=== PATIENT | male | born 1975 | race Caucasian/White ===

== ENCOUNTER 2024-02-13 21:32 | Emergency (ER) | payer SELFPAY ==
[2024-02-13 21:39] VITALS: BP 159/110
[2024-02-13 22:07] VITALS: BMI 41.5
[2024-02-13 22:30] VITALS: BP 140/88
[2024-02-13 23:08] VITALS: BP 138/82
[2024-02-14] VITALS: BP 130/68
--- NOTE | 2024-02-14 00:02 | ED.GENMED ---
History of Present Illness
General
Chief Complaint: Skin Problem
Source: patient
Exam Limitations: none
Time Seen by Provider: 02/13/24 23:09
Nursing documentation reviewed up to this point in time: agreed with
History of Present Illness
History of Present Illness:
Patient presents to ED secondary to worsening left foot pain with swelling over the past 2 days. Pain is minimal at rest, but worse with ambulation. Denies fever or chills. Denies direct trauma. Denies recent injury. Patient states that he went
to beach 1 day prior to his symptoms. Patient did not have any pain during the trip or afterwards. It is when he woke up the following day, he noticed aforementioned left foot pain. In addition, he has noted on top of his foot, puncture gonzalez,
and is concerned that he may have been bitten by 'insects'.
Review of Systems
Review of Systems
Allergies reviewed?: Yes
All Other Systems: ROS reviewed and negative except as documented in HPI and ROS
Constitutional: Reports no symptoms
EENT: Reports no symptoms
Musculoskeletal: Reports other (foot pain w swelling)
Skin: Reports no symptoms
Neurological: Reports no symptoms
Phy Exam
Physical Exam
Physical Exam:
Physical Exam
General: no apparent distress, not acutely ill. afebrile
Head: nc/at. eomi
Neck: supple. normal range of motion.
Neuro: alert and oriented. no focal neurological deficits
Skin: 2 punctured gonzalez noted over top of left foot with minimal erythema/swelling, along with mild tenderness to palpation.
Psychiatric: well kept. interactive and cooperative
Extremities: no calf tenderness.
Course
Vital Signs
Initial and Last Documented VS:
Initial Vital Signs
Temp Pulse Resp BP Pulse Ox
98.3 F 94 18 159/110 98
02/13/24 21:39 02/13/24 21:39 02/13/24 21:39 02/13/24 21:39 02/13/24 21:39
Last Documented Vital Signs
Temp Pulse Resp BP Pulse Ox
98.4 F 70 18 130/68 99
02/13/24 23:08 02/14/24 00:00 02/14/24 00:00 02/14/24 00:00 02/14/24 00:00
MDM/Problems Addressed
MDM/Problems Addressed:
History and exam consistent with likely local inflammatory response from insect bite. No evidence of superimposed infection at this time. Will advise ice application, elevation, benadryl, NSAIDs, along with PCP follow-up. Advised to return to ED
with worsening symptoms.
*Critical Care Note
Total Time (30-74mins, 75-104mins- exclusive of procedures): Not Applicable
ED Attending Note
-
Portions of this chart may have been created with voice recognition software.� Occasional wrong word or��sound alike� substitutions may have occurred due to the inherent limitations of voice recognition software.
Discharge Plan
Departure
Patient Disposition: Home (Routine Discharge)
Date of Disposition: 02/14/24
Time of Disposition: 00:02
Patient with high blood pressure during this ER visit?: Yes
Discharge Problem:
Insect bite
Instructions: Insect Bites and Stings ED
Prescriptions:
New
tramadol 50 mg tablet
50 mg PO TID PRN (Reason: Pain) Qty: 14 0RF
Referrals:
Ozzie Greenberg DO [Family Provider] -
Activity Restrictions/Additional Instructions:
As discussed, please follow-up with your primary care exam for reevaluation. Your prescription has been sent electronically to [facility] pharmacy in [place].
Interventions
Interventions:
*Risk Screen - Suicide Last Done: 02/13/24 21:39
*General Assessment Last Done: 02/13/24 21:39
*Neglect/Abuse Screening Last Done: 02/13/24 21:39
ED- Fall Risk Assessment Last Done: 02/13/24 22:11
*ED COVID-19 Vaccine History Last Done: 02/13/24 22:07
*Nursing Disposition Last Done: 02/14/24 00:11
ED-Skin Assessment Last Done: 02/13/24 22:11
Discharge Date and Time
Discharge Date/Time: 02/14/24 00:12
Print Language: BELARUSIAN
[2024-02-14 00:10] VITALS: BP 130/68
== END 2024-02-14 00:12 | disposition home or self-care (01) ==
LOC: EMR 21:32
PROVIDERS: EMERGENCY PHYSICIAN Emergency Medicine; FAMILY PHYSICIAN Family Medicine
DX: M79.672 Pain in left foot (principal); W57.XXXA Bitten or stung by nonvenomous insect and other nonvenomous arthropods, initial encounter
CPT/HCPCS: 99282